=== PATIENT | female | born 2000 | race Caucasian/White ===

== ENCOUNTER 2021-03-14 18:18 | Emergency (ER) | payer BC, OTHER ==
[~2021-03-14] VITALS: Ht 162.6 cm; Wt 43.5 kg
[~2021-03-14 18:18] MED LIST: ACETAMINOPHEN-1 EAC1 PO; CLINDAMYCIN HC300 MG PO; IBUPROFEN400 MG PO
== END 2021-03-14 19:30 | disposition home or self-care (01) ==
LOC: ED 18:18
DX: N94.6 Dysmenorrhea, unspecified (principal); Z88.0 Allergy status to penicillin
CPT/HCPCS: 99283